=== PATIENT | male | born 1975 | race Caucasian/White ===

== ENCOUNTER 2018-08-05 15:47 | Inpatient (IN) | payer OTHER ==
[~2018-08-05] VITALS: Ht 162.6 cm; Wt 78.5 kg
[2018-08-05 19:28] LABS: BASOPHIL % 1.6 % (0-2); PLATELET COUNT 302 x10^3mcL (130-400)
[2018-08-05 19:36] LABS: CALCIUM 8.8 mg/dL (8.5-10.1); CARBON DIOXIDE 27.8 mmol/L (21-32); CHLORIDE SERUM 107 mmol/L (98-107); CREATININE SERUM 1.2 mg/dL (0.7-1.3); GFR1 > 60 mL/min; GLUCOSE SERUM 109 mg/dL (74-106); SODIUM SERUM 143 mmol/L (136-145)
[2018-08-05 19:41] LABS: ALBUMIN 3.8 g/dL (3.4-5.0); ALKALINE PHOSPHATASE 86 U/L (46-116); ALT/SGPT 29 U/L (16-63); AST/SGOT 21 U/L (15-37); BILIRUBIN TOTAL 0.48 mg/dL (0.20-1.00); TOTAL PROTEIN, SERUM 7.5 g/dL (6.4-8.2)
[2018-08-05 20:58] LABS: CHOLESTEROL/HDL RATIO 4.5; MAGNESIUM 2.1 mg/dL (1.8-2.4); PHOSPHOROUS 2.3 mg/dL (2.5-4.9)
[2018-08-05 22:28] VITALS: BP 142/90
[2018-08-05 22:33] VITALS: Ht 162.6 cm; Wt 78.5 kg
[2018-08-06 05:52] LABS: BASOPHIL % 0.3 % (0-2); PLATELET COUNT 259 x10^3mcL (130-400); RED CELL DISTRIBUTION WIDTH 12.8 % (11.5-14.5)
[2018-08-06 05:57] VITALS: BP 120/67
[2018-08-06 06:40] LABS: CALCIUM 7.9 mg/dL (8.5-10.1); CARBON DIOXIDE 25.3 mmol/L (21-32); CHLORIDE SERUM 110 mmol/L (98-107); GFR1 > 60 mL/min; GLUCOSE SERUM 113 mg/dL (74-106); MAGNESIUM 2.1 mg/dL (1.8-2.4); PHOSPHOROUS 2.8 mg/dL (2.5-4.9); POTASSIUM SERUM 4.3 mmol/L (3.5-5.1); SODIUM SERUM 143 mmol/L (136-145)
[2018-08-06 09:04] LABS: microscopic required? NO
[2018-08-06 09:32] VITALS: BP 127/75
[2018-08-06 10:10] LABS: UA SPECIFIC GRAVITY 1.015 (1.005-1.035); urine erythrocyte NEGATIVE (NEGATIVE)
[2018-08-06 10:27] LABS: AMPHETAMINE QUAL UR NONE DETECTED (See below)
[2018-08-06 16:55] VITALS: BP 136/74
[2018-08-06 20:33] VITALS: BP 127/75
[2018-08-07 05:26] VITALS: BP 126/70
[2018-08-07 06:24] LABS: BASOPHIL % 0.5 % (0-2); PLATELET COUNT 273 x10^3mcL (130-400); RED CELL DISTRIBUTION WIDTH 13.1 % (11.5-14.5)
[2018-08-07 06:58] LABS: C REACTIVE PROTEIN 0.6 mg/dL (<=0.9); CALCIUM 8.6 mg/dL (8.5-10.1); CARBON DIOXIDE 26.4 mmol/L (21-32); CHLORIDE SERUM 106 mmol/L (98-107); GFR1 > 60 mL/min; GLUCOSE SERUM 99 mg/dL (74-106); MAGNESIUM 2.2 mg/dL (1.8-2.4); PHOSPHOROUS 3.1 mg/dL (2.5-4.9); SODIUM SERUM 142 mmol/L (136-145)
[2018-08-07 09:40] VITALS: BP 122/75
[2018-08-07 13:51] VITALS: BP 135/87
[2018-08-07 16:15] VITALS: BP 115/76
[2018-08-07 18:46] VITALS: BP 115/75
[2018-08-07 22:07] VITALS: BP 116/75
[2018-08-08 05:38] VITALS: BP 109/48
[2018-08-08 06:09] LABS: BASOPHIL % 0.1 % (0-2); PLATELET COUNT 288 x10^3mcL (130-400); RED CELL DISTRIBUTION WIDTH 13.1 % (11.5-14.5)
[2018-08-08 06:21] LABS: CALCIUM 8.6 mg/dL (8.5-10.1); CARBON DIOXIDE 26.3 mmol/L (21-32); CHLORIDE SERUM 108 mmol/L (98-107); CREATININE SERUM 0.9 mg/dL (0.7-1.3); GFR1 > 60 mL/min; GLUCOSE SERUM 101 mg/dL (74-106); POTASSIUM SERUM 4.2 mmol/L (3.5-5.1); SODIUM SERUM 142 mmol/L (136-145)
[2018-08-08 09:09] VITALS: BP 120/71
[2018-08-08 17:10] VITALS: BP 92/65
[2018-08-08 21:10] VITALS: BP 119/76
[2018-08-09 05:38] VITALS: BP 129/69
[2018-08-09 06:54] LABS: BASOPHIL % 0.7 % (0-2); PLATELET COUNT 284 x10^3mcL (130-400); RED CELL DISTRIBUTION WIDTH 13.1 % (11.5-14.5)
[2018-08-09 06:57] LABS: CALCIUM 8.5 mg/dL (8.5-10.1); CARBON DIOXIDE 25.3 mmol/L (21-32); CHLORIDE SERUM 109 mmol/L (98-107); GFR1 > 60 mL/min; GLUCOSE SERUM 94 mg/dL (74-106); SODIUM SERUM 144 mmol/L (136-145)
[2018-08-09 10:18] VITALS: BP 133/72
[2018-08-09 17:36] VITALS: BP 139/80
[2018-08-09 21:54] VITALS: BP 131/70
[2018-08-10 05:25] VITALS: BP 116/53
[2018-08-10 06:08] LABS: PLATELET COUNT 291 x10^3mcL (130-400); RED CELL DISTRIBUTION WIDTH 12.8 % (11.5-14.5)
[2018-08-10 06:38] LABS: CALCIUM 8.8 mg/dL (8.5-10.1); CARBON DIOXIDE 26.8 mmol/L (21-32); CHLORIDE SERUM 109 mmol/L (98-107); GFR1 > 60 mL/min; GLUCOSE SERUM 100 mg/dL (74-106); POTASSIUM SERUM 4.3 mmol/L (3.5-5.1); SODIUM SERUM 142 mmol/L (136-145)
[2018-08-10 09:08] VITALS: BP 128/61
[2018-08-10 10:18] VITALS: BP 128/61
== END 2018-08-10 11:21 | disposition home or self-care (01) | DRG 862 ==
LOC: ED 15:47 → MU 20:12
PROVIDERS: Emergency Medicine; General Practice; ADMIT Internal Medicine
PROC: 0JBN0ZZ Excision of Right Lower Leg Subcutaneous Tissue and Fascia, Open Approach (ICD-10-PCS; principal; 2018-08-06)
DX: T24.331D Burn of third degree of right lower leg, subsequent encounter (principal); N17.0 Acute kidney failure with tubular necrosis; E83.39 Other disorders of phosphorus metabolism; T31.0 Burns involving less than 10% of body surface; B96.89 Other specified bacterial agents as the cause of diseases classified elsewhere; E78.5 Hyperlipidemia, unspecified; R73.03 Prediabetes; V00-Y99 External causes of morbidity; Y93.89 Activity, other specified; Y92.89 Other specified places as the place of occurrence of the external cause; Z68.29 Body mass index [BMI] 29.0-29.9, adult
CPT/HCPCS: 83880; 94150; J2175; J2250; J2405; J2543; J2704; J3010; J3370; J3490; J7030; J7040; J7120; Q0092

== ENCOUNTER 2019-08-31 18:29 | Emergency (ER) | payer OTHER ==
[~2019-08-31] VITALS: Ht 162.6 cm; Wt 78.9 kg
[2019-08-31 18:35] VITALS: Ht 162.6 cm; Wt 78.9 kg
[2019-08-31 19:41] LABS: BASOPHIL % 0.5 % (0-2); PLATELET COUNT 300 x10^3mcL (130-400); RED CELL DISTRIBUTION WIDTH 13.1 % (11.5-14.5)
[2019-08-31 19:56] LABS: CALCIUM 9.3 mg/dL (8.5-10.1); CHLORIDE SERUM 103 mmol/L (98-107); CREATININE SERUM 1.1 mg/dL (0.7-1.3); GFR1 > 60 mL/min; GLUCOSE SERUM 112 mg/dL (74-106); POTASSIUM SERUM 3.8 mmol/L (3.5-5.1); SODIUM SERUM 138 mmol/L (136-145)
[2019-08-31 20:01] LABS: ALBUMIN 3.8 g/dL (3.4-5.0); ALKALINE PHOSPHATASE 84 U/L (46-116); ALT/SGPT 30 U/L (16-63); AST/SGOT 20 U/L (15-37); BILIRUBIN TOTAL 0.47 mg/dL (0.20-1.00); TOTAL PROTEIN, SERUM 7.2 g/dL (6.4-8.2)
[2019-08-31 20:02] LABS: C REACTIVE PROTEIN < 0.2 mg/dL (<=0.9)
[2019-08-31 20:58] VITALS: BP 131/84
[2019-09-02 07:05] LABS: RAPID PLASMA REAGIN Non Reactive (Non Reactive)
== END 2019-08-31 21:07 | disposition home or self-care (01) ==
LOC: ED 18:29
PROVIDERS: Emergency Medicine
DX: L03.115 Cellulitis of right lower limb (principal)
CPT/HCPCS: J0696